=== PATIENT | female | born 1985 | race Caucasian/White ===

== ENCOUNTER → 2024-06-21 | Outpatient (CLI) | payer OTHER ==
[~2024-06-21] MED LIST: PROHANCE 279.3MG/ML 15ML VIAL As Ordered ONE; PROHANCE 279.3MG/ML 5ML VIAL As Ordered ONE
== END ==
LOC: M RAD 14:59
PROVIDERS: ATTEND General Practice
DX: N80.9 Endometriosis, unspecified (principal); R19.00 Intra-abdominal and pelvic swelling, mass and lump, unspecified site; Z90.710 Acquired absence of both cervix and uterus
CPT/HCPCS: 72197; A9576

== ENCOUNTER → 2024-07-03 | Outpatient (CLI) | payer OTHER ==
[~2024-07-03] MED LIST changes: +ISOVUE-370 76% 100ML VIAL As Ordered ONE; -PROHANCE 279.3MG/ML 15ML VIAL As Ordered ONE; -PROHANCE 279.3MG/ML 5ML VIAL As Ordered ONE
== END ==
LOC: M RAD 15:25
PROVIDERS: ATTEND Surgery
DX: N80.C19 Endometriosis of the anterior abdominal wall, unspecified depth (principal)
CPT/HCPCS: 74177; Q9967

== ENCOUNTER 2024-10-04 06:15 | Day surgery (SDC) | payer OTHER ==
[~2024-10-04] VITALS: Ht 160 cm; Wt 82.3 kg
[~2024-10-04 06:15] MED LIST changes: +ACETAMINOPHEN 500 MG TAB PO ONE; +AMPH1CAP14 PO; -ISOVUE-370 76% 100ML VIAL As Ordered ONE; +LORA-930 PO
[2024-10-04] MEDS ORDERED: LR 1,000 ML IV SCH (06:40)
[2024-10-04] MEDS ORDERED: SCOPOLAMINE 1MG TRANSDERMAL PATCH TOP ONE (06:40)
[2024-10-04 06:44] LABS: BASO # 0.0 10^3/uL (0.0-0.2); BASO % 0.5 % (0.0-1.0); EOS # 0.2 10^3/uL (0.0-0.5); EOS % 1.8 % (0.0-3.0); LYMPH # 2.4 10^3/uL (1.5-5.0); LYMPH % 29.4 % (24.0-44.0); MONO # 0.6 10^3/uL (0.0-0.8); MONO % 7.2 % (2.0-8.0); NEUTROPHILS # 5.0 10^3/uL (1.5-8.5); NEUTROPHILS % 60.9 % (36.0-66.0); PLATELET COUNT, AUTOMATED 294 10^3/uL (150-450)
[2024-10-04] MEDS ORDERED: MIDAZOLAM INJ 2 MG/2 ML VIAL As Ordered ONE (07:05)
[2024-10-04] MEDS ORDERED: ROCURONIUM BROMIDE 50MG/5ML VIAL As Ordered ONE (07:06)
[2024-10-04] MEDS ORDERED: SUGAMMADEX SODIUM 500 MG/5 ML VIAL As Ordered ONE (07:06)
[2024-10-04] MEDS ORDERED: LIDOCAINE 2% 100 MG/5 ML SDV (FOR ANES.) As Ordered ONE (07:06)
[2024-10-04] MEDS ORDERED: dexAMETHasone 4 MG/ML 1 ML VIAL As Ordered ONE (07:06)
[2024-10-04] MEDS ORDERED: KETOROLAC 30 MG/ML 1 ML VIAL As Ordered ONE (07:06)
[2024-10-04] MEDS ORDERED: ACETAMINOPHEN 1000MG/100ML IV BAG As Ordered ONE (07:07)
[2024-10-04 07:10] LABS: CALCIUM LEVEL 9.4 MG/DL (8.5-10.1); CARBON DIOXIDE LEVEL 23 MMOL/L (20-31); CHLORIDE LEVEL 108 MMOL/L (98-107); CREATININE FOR GFR 0.78 MG/DL (0.55-1.30); GLOMERULAR FILTRATION RATE > 90.0 (>60); POTASSIUM SERUM 4.3 MMOL/L (3.5-5.1); SODIUM LEVEL 142 MMOL/L (136-145)
[2024-10-04] MEDS: SCOPOLAMINE 1MG TRANSDERMAL PATCH TOP ONE (07:18)
[2024-10-04] MEDS: FAMOTIDINE IV BAG 20 MG in IV 1 EA IV ONE (07:18)
[2024-10-04] MEDS: ceFAZolin SOD 2 GM IV ONCE IV ONE (07:57)
[2024-10-04] MEDS ORDERED: PHENYLephrine 500MCG 5ML (100MCG/ML) SYRINGE As Ordered ONE (08:18)
[2024-10-04] MEDS ORDERED: HYDROmorphone HCL 2 MG/ML 1 ML VIAL As Ordered ONE (08:40)
[2024-10-04] MEDS ORDERED: HYDROMORPHONE HCL 0.5 MG/0.5 ML SYRINGE IV PRN (10:30)
[2024-10-04] MEDS ORDERED: MORPHINE 2 MG/ML 1 ML VIAL IV PRN (10:30)
[2024-10-04 11:45] VITALS: BP 142/63
[2024-10-04 12:24] VITALS: TEMP 98.2; O2SAT 97
== END 2024-10-04 12:28 | disposition home or self-care (01) ==
LOC: M SDC 06:15
PROVIDERS: ATTEND Surgery
DX: N80.399 Endometriosis of the pelvic peritoneum, other specified sites, unspecified depth (principal); N83.12 Corpus luteum cyst of left ovary; N80.102 Endometriosis of left ovary, unspecified depth; G43.909 Migraine, unspecified, not intractable, without status migrainosus; F90.9 Attention-deficit hyperactivity disorder, unspecified type; F41.9 Anxiety disorder, unspecified; F32.A Depression, unspecified; Z90.89 Acquired absence of other organs; Z90.710 Acquired absence of both cervix and uterus
CPT/HCPCS: 36415; 58661; 58662; 80048; 85025; 86850; 86900; 86901; 88305; J0131; J0665; J0666; J0690; J1100; J1171; J1308; J1885; J2250; J2371; J2765; J3010; S2900